=== PATIENT | male | born 1940 | race Caucasian/White ===

== ENCOUNTER 2021-07-22 13:56 | Inpatient (IN) ==
[~2021-07-22 13:56] MED LIST: *HR* Dextrose 50 % in Water (Syg) 50 ML SYRINGE IVP PRN; D5% in Water 1,000 ML IVC PRN; Dextrose 4 GM Chewable Tablets PO PRN
[2021-07-22] MEDS: Insulin LISPRO 300 UNITS/3 ML VIAL SUBQ SCH ×2 (16:19→22:16)
[2021-07-22] MEDS: carvediloL 6.25 MG TABLET PO SCH (16:48)
[2021-07-22] MEDS ORDERED: carvediloL 25 MG TABLET PO SCH (17:00)
[2021-07-22] MEDS: lisinopriL 20 MG TABLET PO SCH (22:17)
[2021-07-23 08:00] LABS: Basophils % 0.4 %; Eosinophils # 0.3 K/mcL (0.0-0.6); Eosinophils % 5.1 %; Hematocrit 29.3 % (37.5-50.1); Hemoglobin 9.6 g/dL (12.9-16.9); Immature Granulocytes % 0.4 % (0-4); Lymphocytes # 1.3 K/mcL (0.6-4.6); Lymphocytes % 19.9 %; Mean Corpuscular HGB Conc 32.8 g/dL (31.6-35.5); Mean Corpuscular Hemoglobin 29.5 pg (28.0-33.3); Mean Corpuscular Volume 90.2 fL (83.0-100.0); Mean Platelet Volume 9.8 fL (9.4-12.4); Monocytes # 0.4 K/mcL (0.0-1.3); Monocytes % 5.4 %; Neutrophils # 4.6 K/mcL (1.6-8.9); Platelet Count 192 K/mcL (140-400); Red Blood Count 3.25 M/mcL (4.19-5.50); Red Cell Distribution Width 13.6 % (11.5-14.5); Segmented Neutrophils % 68.8 %; White Blood Count 6.7 K/mcL (4.3-11.1)
[2021-07-23 08:17] LABS: BUN/Creatinine Ratio 15 (6-26); Blood Urea Nitrogen 13 mg/dL (8-23); Calcium 7.6 mg/dL (8.6-10.3); Carbon Dioxide 31 mEq/L (23-29); Chloride 105 mEq/L (98-107); Glucose 156 mg/dL (70-105); Osmolality,Calculated 293 (280-300); Potassium 3.6 mEq/L (3.5-5.1); Sodium 140 mEq/L (136-145); eGFR For African Americans > 60 (> 60); eGFR For Non-African Americans > 60 (> 60)
[2021-07-23] MEDS: Insulin LISPRO 300 UNITS/3 ML VIAL SUBQ SCH ×4 (09:08→21:05)
[2021-07-23] MEDS: Baclofen 10 MG TABLET PO SCH (09:12)
[2021-07-23] MEDS: Multivit/Ca/Min/Fe/FA 1 TAB TABLET PO SCH (09:12)
[2021-07-23] MEDS: Aspirin 81 MG TAB.CHEW PO SCH (09:12)
[2021-07-23] MEDS: Cholecalciferol (D-3) 1,000 UNIT (25MCG) TABLET PO SCH (09:14)
[2021-07-23] MEDS: amLODIPine 5 MG TABLET PO SCH (09:14)
[2021-07-23] MEDS: lisinopriL 20 MG TABLET PO SCH ×2 (09:15→21:13)
[2021-07-23] MEDS: carvediloL 6.25 MG TABLET PO SCH ×2 (09:15→16:55)
[2021-07-23] MEDS: Furosemide 20 MG TABLET PO SCH (09:15)
[2021-07-23] MEDS: Colestipol Hcl [Colestid] 1 GM Tablet PO SCH (09:17)
[2021-07-23] MEDS ORDERED: Ipratropium/Albuterol Neb 3 ML IH PRN (12:10)
[2021-07-23] MEDS ORDERED: Insulin DETEMIR 100 UNIT/ML X5UNITS SUBQ SCH (21:00)
[2021-07-23] MEDS: Insulin DETEMIR 100 UNIT/ML X5UNITS SUBQ SCH (21:07)
[2021-07-24] MEDS: Insulin LISPRO 300 UNITS/3 ML VIAL SUBQ SCH ×4 (07:52→21:03)
[2021-07-24] MEDS: Aspirin 81 MG TAB.CHEW PO SCH (08:38)
[2021-07-24] MEDS: carvediloL 6.25 MG TABLET PO SCH ×2 (08:38→17:04)
[2021-07-24] MEDS: Multivit/Ca/Min/Fe/FA 1 TAB TABLET PO SCH (08:39)
[2021-07-24] MEDS: Cholecalciferol (D-3) 1,000 UNIT (25MCG) TABLET PO SCH (08:39)
[2021-07-24] MEDS: lisinopriL 20 MG TABLET PO SCH ×2 (08:39→21:03)
[2021-07-24] MEDS: Baclofen 10 MG TABLET PO SCH (08:40)
[2021-07-24] MEDS: amLODIPine 5 MG TABLET PO SCH (08:40)
[2021-07-24] MEDS: Furosemide 20 MG TABLET PO SCH (08:41)
[2021-07-24] MEDS: Colestipol Hcl [Colestid] 1 GM Tablet PO SCH (08:43)
[2021-07-24] MEDS: Insulin DETEMIR 100 UNIT/ML X5UNITS SUBQ SCH (22:53)
[2021-07-25] MEDS: Insulin LISPRO 300 UNITS/3 ML VIAL SUBQ SCH ×4 (07:50→20:00)
[2021-07-25] MEDS: carvediloL 6.25 MG TABLET PO SCH ×2 (07:58→16:55)
[2021-07-25 09:06] LABS: % Iron Saturation 8 % (20-55); Iron 21 mcg/dL (65-175); Transferrin 200 mg/dL (203-362)
[2021-07-25 09:24] LABS: Ferritin 35 ng/mL (20-250)
[2021-07-25] MEDS: Baclofen 10 MG TABLET PO SCH (09:39)
[2021-07-25] MEDS: Aspirin 81 MG TAB.CHEW PO SCH (09:39)
[2021-07-25] MEDS: lisinopriL 20 MG TABLET PO SCH ×2 (09:39→20:00)
[2021-07-25] MEDS: Furosemide 20 MG TABLET PO SCH (09:40)
[2021-07-25] MEDS: Multivit/Ca/Min/Fe/FA 1 TAB TABLET PO SCH (09:40)
[2021-07-25] MEDS: amLODIPine 5 MG TABLET PO SCH (09:40)
[2021-07-25] MEDS: Colestipol Hcl [Colestid] 1 GM Tablet PO SCH (09:41)
[2021-07-25] MEDS: Cholecalciferol (D-3) 1,000 UNIT (25MCG) TABLET PO SCH (09:41)
[2021-07-25] MEDS: Insulin DETEMIR 100 UNIT/ML X5UNITS SUBQ SCH (20:00)
[2021-07-26] MEDS: Insulin LISPRO 300 UNITS/3 ML VIAL SUBQ SCH ×4 (07:48→20:23)
[2021-07-26] MEDS: Aspirin 81 MG TAB.CHEW PO SCH (08:21)
[2021-07-26] MEDS: lisinopriL 20 MG TABLET PO SCH ×2 (08:22→20:23)
[2021-07-26] MEDS: carvediloL 6.25 MG TABLET PO SCH ×2 (08:22→16:49)
[2021-07-26] MEDS: amLODIPine 5 MG TABLET PO SCH (08:22)
[2021-07-26] MEDS: Cholecalciferol (D-3) 1,000 UNIT (25MCG) TABLET PO SCH (08:23)
[2021-07-26] MEDS: Furosemide 20 MG TABLET PO SCH (08:23)
[2021-07-26] MEDS: Baclofen 10 MG TABLET PO SCH (08:23)
[2021-07-26] MEDS: Multivit/Ca/Min/Fe/FA 1 TAB TABLET PO SCH (08:23)
[2021-07-26] MEDS: Colestipol Hcl [Colestid] 1 GM Tablet PO SCH (09:45)
[2021-07-26] MEDS: Acetaminophen 325 MG TABLET PO PRN (16:59)
[2021-07-26] MEDS: Insulin DETEMIR 100 UNIT/ML X5UNITS SUBQ SCH (20:23)
[2021-07-27] MEDS: Multivit/Ca/Min/Fe/FA 1 TAB TABLET PO SCH (08:29)
[2021-07-27] MEDS: carvediloL 6.25 MG TABLET PO SCH ×2 (08:29→16:58)
[2021-07-27] MEDS: Baclofen 10 MG TABLET PO SCH (08:29)
[2021-07-27] MEDS: Insulin LISPRO 300 UNITS/3 ML VIAL SUBQ SCH ×4 (08:29→20:03)
[2021-07-27] MEDS: lisinopriL 20 MG TABLET PO SCH ×2 (08:30→21:04)
[2021-07-27] MEDS: Aspirin 81 MG TAB.CHEW PO SCH (08:30)
[2021-07-27] MEDS: amLODIPine 5 MG TABLET PO SCH (08:30)
[2021-07-27] MEDS: Furosemide 20 MG TABLET PO SCH (08:30)
[2021-07-27] MEDS: Cholecalciferol (D-3) 1,000 UNIT (25MCG) TABLET PO SCH (08:30)
[2021-07-27] MEDS: Colestipol Hcl [Colestid] 1 GM Tablet PO SCH (08:30)
[2021-07-27] MEDS: Acetaminophen 325 MG TABLET PO PRN (21:04)
[2021-07-28] MEDS: lisinopriL 20 MG TABLET PO SCH ×2 (08:37→20:10)
[2021-07-28] MEDS: Aspirin 81 MG TAB.CHEW PO SCH (08:37)
[2021-07-28] MEDS: Insulin DETEMIR 100 UNIT/ML X5UNITS SUBQ SCH (08:37)
[2021-07-28] MEDS: Baclofen 10 MG TABLET PO SCH (08:37)
[2021-07-28] MEDS: amLODIPine 5 MG TABLET PO SCH (08:38)
[2021-07-28] MEDS: Insulin LISPRO 300 UNITS/3 ML VIAL SUBQ SCH ×4 (08:38→20:08)
[2021-07-28] MEDS: Multivit/Ca/Min/Fe/FA 1 TAB TABLET PO SCH (08:38)
[2021-07-28] MEDS: Cholecalciferol (D-3) 1,000 UNIT (25MCG) TABLET PO SCH (08:38)
[2021-07-28] MEDS: Furosemide 20 MG TABLET PO SCH (08:38)
[2021-07-28] MEDS: Colestipol Hcl [Colestid] 1 GM Tablet PO SCH (08:38)
[2021-07-28] MEDS: carvediloL 6.25 MG TABLET PO SCH ×2 (08:39→17:13)
[2021-07-28] MEDS ORDERED: Dextrose 4 GM Chewable Tablets PO PRN ×2 (15:21)
[2021-07-28] MEDS ORDERED: D5% in Water 1,000 ML IVC PRN (15:21)
[2021-07-28] MEDS ORDERED: *HR* Dextrose 50 % in Water (Syg) 50 ML SYRINGE IVP PRN (15:21)
[2021-07-29] MEDS: Insulin LISPRO 300 UNITS/3 ML VIAL SUBQ SCH ×4 (07:01→19:33)
[2021-07-29] MEDS: Furosemide 20 MG TABLET PO SCH (08:43)
[2021-07-29] MEDS: Multivit/Ca/Min/Fe/FA 1 TAB TABLET PO SCH (08:43)
[2021-07-29] MEDS: Cholecalciferol (D-3) 1,000 UNIT (25MCG) TABLET PO SCH (08:43)
[2021-07-29] MEDS: Aspirin 81 MG TAB.CHEW PO SCH (08:43)
[2021-07-29] MEDS: Colestipol Hcl [Colestid] 1 GM Tablet PO SCH (08:43)
[2021-07-29] MEDS: Baclofen 10 MG TABLET PO SCH (08:44)
[2021-07-29] MEDS: carvediloL 6.25 MG TABLET PO SCH ×2 (08:44→16:43)
[2021-07-29] MEDS: lisinopriL 20 MG TABLET PO SCH ×2 (08:44→19:33)
[2021-07-29] MEDS: amLODIPine 5 MG TABLET PO SCH (08:44)
[2021-07-29] MEDS: Insulin DETEMIR 100 UNIT/ML X5UNITS SUBQ SCH (08:55)
[2021-07-30] MEDS: Insulin LISPRO 300 UNITS/3 ML VIAL SUBQ SCH ×4 (07:02→20:07)
[2021-07-30] MEDS: lisinopriL 20 MG TABLET PO SCH ×2 (08:32→20:07)
[2021-07-30] MEDS: Aspirin 81 MG TAB.CHEW PO SCH (08:32)
[2021-07-30] MEDS: Cholecalciferol (D-3) 1,000 UNIT (25MCG) TABLET PO SCH (08:32)
[2021-07-30] MEDS: Multivit/Ca/Min/Fe/FA 1 TAB TABLET PO SCH (08:33)
[2021-07-30] MEDS: Insulin DETEMIR 100 UNIT/ML X5UNITS SUBQ SCH (08:33)
[2021-07-30] MEDS: Baclofen 10 MG TABLET PO SCH (08:33)
[2021-07-30] MEDS: Furosemide 20 MG TABLET PO SCH (08:33)
[2021-07-30] MEDS: amLODIPine 5 MG TABLET PO SCH (08:33)
[2021-07-30] MEDS: carvediloL 6.25 MG TABLET PO SCH ×2 (08:33→17:24)
[2021-07-30] MEDS: Colestipol Hcl [Colestid] 1 GM Tablet PO SCH (08:34)
[2021-07-30] MEDS ORDERED: tiZANidine 4 MG TABLET PO PRN (18:20)
[2021-07-31] MEDS: Furosemide 20 MG TABLET PO SCH (09:09)
[2021-07-31] MEDS: carvediloL 6.25 MG TABLET PO SCH ×2 (09:09→16:48)
[2021-07-31] MEDS: lisinopriL 20 MG TABLET PO SCH ×2 (09:10→20:33)
[2021-07-31] MEDS: amLODIPine 5 MG TABLET PO SCH (09:11)
[2021-07-31] MEDS: Aspirin 81 MG TAB.CHEW PO SCH (09:11)
[2021-07-31] MEDS: Cholecalciferol (D-3) 1,000 UNIT (25MCG) TABLET PO SCH (09:11)
[2021-07-31] MEDS: Multivit/Ca/Min/Fe/FA 1 TAB TABLET PO SCH (09:12)
[2021-07-31] MEDS: Baclofen 10 MG TABLET PO SCH (09:12)
[2021-07-31] MEDS: Colestipol Hcl [Colestid] 1 GM Tablet PO SCH (09:13)
[2021-07-31] MEDS: Insulin LISPRO 300 UNITS/3 ML VIAL SUBQ SCH ×4 (09:15→20:32)
[2021-07-31] MEDS: Insulin DETEMIR 100 UNIT/ML X5UNITS SUBQ SCH (09:16)
[2021-07-31] MEDS ORDERED: Oxymetazoline Nasal SPRAY BOTTLE 15ML NS PRN (17:06)
[2021-08-01] MEDS: Insulin LISPRO 300 UNITS/3 ML VIAL SUBQ SCH ×4 (07:47→20:12)
[2021-08-01] MEDS: lisinopriL 20 MG TABLET PO SCH ×2 (09:22→20:19)
[2021-08-01] MEDS: amLODIPine 5 MG TABLET PO SCH (09:23)
[2021-08-01] MEDS: Aspirin 81 MG TAB.CHEW PO SCH (09:23)
[2021-08-01] MEDS: Cholecalciferol (D-3) 1,000 UNIT (25MCG) TABLET PO SCH (09:23)
[2021-08-01] MEDS: Multivit/Ca/Min/Fe/FA 1 TAB TABLET PO SCH (09:23)
[2021-08-01] MEDS: Baclofen 10 MG TABLET PO SCH (09:24)
[2021-08-01] MEDS: Furosemide 20 MG TABLET PO SCH (09:25)
[2021-08-01] MEDS: carvediloL 6.25 MG TABLET PO SCH ×2 (09:26→16:45)
[2021-08-01] MEDS: Colestipol Hcl [Colestid] 1 GM Tablet PO SCH (09:27)
[2021-08-01] MEDS: Insulin DETEMIR 100 UNIT/ML X5UNITS SUBQ SCH (09:27)
[2021-08-02 07:53] LABS: Basophils % 0.5 %; Eosinophils # 0.2 K/mcL (0.0-0.6); Eosinophils % 3.5 %; Hematocrit 30.4 % (37.5-50.1); Hemoglobin 9.8 g/dL (12.9-16.9); Lymphocytes # 1.5 K/mcL (0.6-4.6); Mean Corpuscular HGB Conc 32.2 g/dL (31.6-35.5); Mean Corpuscular Hemoglobin 28.7 pg (28.0-33.3); Mean Corpuscular Volume 89.1 fL (83.0-100.0); Monocytes # 0.5 K/mcL (0.0-1.3); Monocytes % 9.4 %; Neutrophils # 3.4 K/mcL (1.6-8.9); Platelet Count 187 K/mcL (140-400); Red Blood Count 3.41 M/mcL (4.19-5.50); Red Cell Distribution Width 14.1 % (11.5-14.5); Segmented Neutrophils % 60.6 %; White Blood Count 5.7 K/mcL (4.3-11.1)
[2021-08-02] MEDS: Insulin LISPRO 300 UNITS/3 ML VIAL SUBQ SCH ×4 (10:23→20:46)
[2021-08-02] MEDS: Colestipol Hcl [Colestid] 1 GM Tablet PO SCH (10:24)
[2021-08-02] MEDS: Furosemide 20 MG TABLET PO SCH (10:25)
[2021-08-02] MEDS: carvediloL 6.25 MG TABLET PO SCH ×2 (10:25→17:13)
[2021-08-02] MEDS: Insulin DETEMIR 100 UNIT/ML X5UNITS SUBQ SCH (10:25)
[2021-08-02] MEDS: Baclofen 10 MG TABLET PO SCH (10:25)
[2021-08-02] MEDS: Cholecalciferol (D-3) 1,000 UNIT (25MCG) TABLET PO SCH (10:25)
[2021-08-02] MEDS: amLODIPine 5 MG TABLET PO SCH (10:25)
[2021-08-02] MEDS: Multivit/Ca/Min/Fe/FA 1 TAB TABLET PO SCH (10:26)
[2021-08-02] MEDS: lisinopriL 20 MG TABLET PO SCH ×2 (10:26→20:45)
[2021-08-02] MEDS: Aspirin 81 MG TAB.CHEW PO SCH (10:26)
[2021-08-03] MEDS: Insulin LISPRO 300 UNITS/3 ML VIAL SUBQ SCH ×4 (08:30→20:50)
[2021-08-03] MEDS: Aspirin 81 MG TAB.CHEW PO SCH (08:36)
[2021-08-03] MEDS: Multivit/Ca/Min/Fe/FA 1 TAB TABLET PO SCH (08:36)
[2021-08-03] MEDS: Baclofen 10 MG TABLET PO SCH (08:37)
[2021-08-03] MEDS: amLODIPine 5 MG TABLET PO SCH (08:37)
[2021-08-03] MEDS: Furosemide 20 MG TABLET PO SCH (08:38)
[2021-08-03] MEDS: Cholecalciferol (D-3) 1,000 UNIT (25MCG) TABLET PO SCH (08:38)
[2021-08-03] MEDS: lisinopriL 20 MG TABLET PO SCH ×2 (08:39→20:49)
[2021-08-03] MEDS: Insulin DETEMIR 100 UNIT/ML X5UNITS SUBQ SCH (08:44)
[2021-08-03] MEDS: carvediloL 6.25 MG TABLET PO SCH ×2 (09:45→16:56)
[2021-08-03] MEDS: Colestipol Hcl [Colestid] 1 GM Tablet PO SCH (16:54)
[2021-08-04 06:48] VITALS: BP 129/55; PULSE 56; RESP 14; TEMP 98.2
[2021-08-04] MEDS: Insulin LISPRO 300 UNITS/3 ML VIAL SUBQ SCH ×2 (07:30→11:28)
[2021-08-04] MEDS: Cholecalciferol (D-3) 1,000 UNIT (25MCG) TABLET PO SCH (09:06)
[2021-08-04] MEDS: Furosemide 20 MG TABLET PO SCH (09:07)
[2021-08-04] MEDS: Aspirin 81 MG TAB.CHEW PO SCH (09:07)
[2021-08-04] MEDS: Multivit/Ca/Min/Fe/FA 1 TAB TABLET PO SCH (09:07)
[2021-08-04] MEDS: amLODIPine 5 MG TABLET PO SCH (09:07)
[2021-08-04] MEDS: carvediloL 6.25 MG TABLET PO SCH (09:07)
[2021-08-04] MEDS: lisinopriL 20 MG TABLET PO SCH (09:07)
[2021-08-04] MEDS: Baclofen 10 MG TABLET PO SCH (09:07)
[2021-08-04] MEDS: Insulin DETEMIR 100 UNIT/ML X5UNITS SUBQ SCH (09:08)
[2021-08-04] MEDS: Colestipol Hcl [Colestid] 1 GM Tablet PO SCH (09:22)
[2021-08-04 11:35] VITALS: O2SAT 94
== END 2021-08-04 16:07 | disposition home or self-care (01) | DRG 871 ==
LOC: INPPIK 13:56
PROVIDERS: ADMIT Internal Medicine; ATTEND Internal Medicine